=== PATIENT | male | born 1940 | race Caucasian/White ===

== ENCOUNTER 2018-07-22 | Inpatient (IN) | payer OTHER, BC | END 2018-07-23 13:40 | disposition home or self-care (01) | DRG 669 | PROVIDERS: ADMIT Internal Medicine | PROC: 0TC78ZZ Extirpation of Matter from Left Ureter, Via Natural or Artificial Opening Endoscopic (ICD-10-PCS; principal; 2018-07-22) | PROC: 0T778DZ Dilation of Left Ureter with Intraluminal Device, Via Natural or Artificial Opening Endoscopic (ICD-10-PCS; principal; 2018-07-22) ==